=== PATIENT | female | born 1935 | race African-American/Black ===

== ENCOUNTER 2020-06-07 16:45 | Inpatient (IN) | payer BC, MEDICARE ==
[~2020-06-07] VITALS: Ht 175.3 cm; Wt 47.2 kg
[2020-06-07] MEDS ORDERED: SODIUM CHLORIDE 0.9% 1,000 ML IV ONE (18:22)
[2020-06-07 18:51] LABS: BASOPHILS % 0.6 % (0.0-2.0); EOSINOPHILS % 2.3 % (0.0-5.0); HEMATOCRIT. 33.4 % (36.0-48.0); HEMOGLOBIN. 11.4 g/dL (12.0-16.0); LYMPHOCYTES % 12.9 % (20.0-50.0); MEAN CORPUSCULAR HEMOGLOBIN 26.3 pg (28.0-32.0); MEAN CORPUSCULAR VOLUME 77.4 fL (81.0-99.0); MEAN PLATELET VOLUME 8.4 fl (7.4-10.4); NEUTROPHILS % 76.2 % (40.0-76.0); PLATELET 251 x1000/uL (130-400); RED BLOOD CELL COUNT 4.31 mill/uL (4.2-5.4); RED CELL DISTRIBUTION WIDTH 17.4 % (11.6-14.6)
[2020-06-07 18:53] LABS: CLARITY URINE TURBID (CLEAR); COLOR URINE YELLOW (YELLOW); KETONES URINE NEGATIVE (NEGATIVE); LEUKOCYTE ESTERASE URINE 2+ (NEGATIVE); NITRITE URINE NEGATIVE (NEGATIVE); OCCULT BLOOD URINE 2+ (NEGATIVE); PROTEIN URINE TRACE (NEGATIVE); SPECIFIC GRAVITY URINE 1.026 (1.005-1.030)
[2020-06-07 18:56] LABS: CHLORIDE 105 mEq/L (98-107)
[2020-06-07 19:05] LABS: T4 FREE 1.02 ng/dL (0.76-1.46)
[2020-06-07] MEDS ORDERED: LABETALOL 5MG/ML SYR 20 MG/4 ML SYRINGE IV ONE (20:00)
[2020-06-07] MEDS ORDERED: CEFTRIAXONE 2 G PREMIX 50 ML IV NR (20:00)
[2020-06-07 22:30] VITALS: BP 173/79
[2020-06-07 22:33] VITALS: BP 173/79
[2020-06-08] VITALS: BP 141/75
[2020-06-08] MEDS ORDERED: LEVO100T PO (00:40)
[2020-06-08] MEDS ORDERED: MULT-1116 PO (00:40)
[2020-06-08] MEDS ORDERED: PRED1TAB PO (00:40)
[2020-06-08] MEDS ORDERED: PNEUMOCOCCAL 23-VAL P-SAC VAC 0.5 ML IM ONE (01:00)
[2020-06-08] MEDS ORDERED: CLONIDINE 0.1MG TABLET PO PRN (01:15)
[2020-06-08] MEDS ORDERED: ACETAMINOPHEN 325MG TABLET PO PRN (01:15)
[2020-06-08] MEDS: DEXT 5%/0.45% NACL 1000ML 1,000 ML IV SCH ×2 (03:46→20:54)
[2020-06-08 04:00] VITALS: BP 118/65
[2020-06-08 08:00] VITALS: BP 139/78
[2020-06-08] MEDS: ENOXAPARIN 30MG/0.3ML SYR SUBCUT SCH (08:10)
[2020-06-08] MEDS: LEVOTHYROXINE SODIUM 100MCG TABLET PO SCH (08:11)
[2020-06-08] MEDS: AMLODIPINE 2.5MG TABLET PO SCH ×2 (11:00→16:39)
[2020-06-08 12:00] VITALS: BP 103/52
[2020-06-08] MEDS ORDERED: IPRATROPIUM/ALBUTEROL 0.5-3(2.5)MG/3ML NEB HHN SCH (12:00)
[2020-06-08 12:24] LABS: BASOPHILS % 0.4 % (0.0-2.0); EOSINOPHILS % 3.7 % (0.0-5.0); HEMATOCRIT. 31.3 % (36.0-48.0); HEMOGLOBIN. 10.8 g/dL (12.0-16.0); LYMPHOCYTES % 10.5 % (20.0-50.0); MEAN CORPUSCULAR HEMOGLOBIN 26.6 pg (28.0-32.0); MEAN CORPUSCULAR VOLUME 76.7 fL (81.0-99.0); MEAN PLATELET VOLUME 8.6 fl (7.4-10.4); MONOCYTES % 10.1 % (2.0-8.0); NEUTROPHILS % 75.3 % (40.0-76.0); PLATELET 224 x1000/uL (130-400); RED BLOOD CELL COUNT 4.08 mill/uL (4.2-5.4); RED CELL DISTRIBUTION WIDTH 17.5 % (11.6-14.6)
[2020-06-08 12:27] LABS: CHLORIDE 106 mEq/L (98-107)
[2020-06-08 12:28] LABS: D-DIMER 1.78 mg/L FEU (<0.50); INR 1.1; PROTHROMBIN TIME 11.5 sec (9.6-11.0)
[2020-06-08 16:00] VITALS: BP 115/69
[2020-06-08] MEDS ORDERED: HYDROCODONE/ACETAMINOPHEN 5/325MG TABLET PO PRN (16:30)
[2020-06-08] MEDS ORDERED: ONDANSETRON HCL 4MG/2ML INJ IV PRN (16:30)
[2020-06-08] MEDS ORDERED: HYDRALAZINE 20MG/ML VIAL IV PRN (16:30)
[2020-06-08] MEDS ORDERED: PIPERACILLIN/TAZOBACTAM 3.375 G in DEXT 5% WATER 100 ML IV SCH (16:30)
[2020-06-08] MEDS ORDERED: POTASSIUM CHLORIDE 20MEQ TABLET SR PO NR (17:00)
[2020-06-08] MEDS: PIPERACILLIN/TAZOBACTAM 2.25 G in DEXTROSE 5% WATER 50 ML IV SCH ×2 (18:15→23:27)
[2020-06-08 20:00] VITALS: BP 155/75
[2020-06-09] VITALS: BP 163/80
[2020-06-09 04:00] VITALS: BP 126/69
[2020-06-09] MEDS: PIPERACILLIN/TAZOBACTAM 2.25 G in DEXTROSE 5% WATER 50 ML IV SCH ×2 (05:29→11:51)
[2020-06-09 06:08] LABS: HEMATOCRIT 31.2 % (36.0-48.0); HEMOGLOBIN 10.9 g/dL (12.0-16.0); MEAN CORPUSCULAR HEMOGLOBIN 26.8 pg (28.0-32.0); MEAN CORPUSCULAR VOLUME 77.1 fL (81.0-99.0); PLATELET 231 x1000/uL (130-400); RED BLOOD CELL COUNT 4.05 mill/uL (4.2-5.4); RED CELL DISTRIBUTION WIDTH 17.4 % (11.6-14.6)
[2020-06-09 06:11] LABS: CHLORIDE 106 mEq/L (98-107)
[2020-06-09] MEDS: LEVOTHYROXINE SODIUM 100MCG TABLET PO SCH (06:40)
[2020-06-09 08:00] VITALS: BP 108/69
[2020-06-09] MEDS: ENOXAPARIN 30MG/0.3ML SYR SUBCUT SCH (08:56)
[2020-06-09] MEDS: AMLODIPINE 2.5MG TABLET PO SCH (08:57)
[2020-06-09 12:00] VITALS: BP 124/70
[2020-06-09] MEDS ORDERED: IOHEXOL-350 100 ML BOTTLE ONE (15:05)
[2020-06-09 16:00] VITALS: BP 163/90
[2020-06-09] MEDS ORDERED: ALBU90AE INH (16:04)
[2020-06-09] MEDS ORDERED: BUDE6.9H INH (16:04)
[2020-06-09 19:50] VITALS: BP 163/90
== END 2020-06-09 22:45 | disposition home or self-care (01) | DRG 177 ==
LOC: ER 16:45 → EDBEDREQSVC 20:28 → 7WST 20:30 → ENRESERV 21:09
PROVIDERS: ADMIT Internal Medicine; ATTEND Internal Medicine
DX: U07.1 COVID-19 (principal); J12.89 Other viral pneumonia; N39.0 Urinary tract infection, site not specified; Z68.1 Body mass index [BMI] 19.9 or less, adult; R64 Cachexia; D64.9 Anemia, unspecified; E03.9 Hypothyroidism, unspecified; E87.6 Hypokalemia; I10 Essential (primary) hypertension; R62.7 Adult failure to thrive; D72.810 Lymphocytopenia; M06.9 Rheumatoid arthritis, unspecified; R00.0 Tachycardia, unspecified; E87.8 Other disorders of electrolyte and fluid balance, not elsewhere classified
CPT/HCPCS: 36415; 71045; 71275; 80048; 80053; 81003; 83735; 83880; 84439; 84443; 84484; 85025; 85027; 85379; 87804; 90732; 93005; 93970; 96365; 99285; J0696; J1650; J2543; J3490; J7030; J7060; Q9967; U0003-CS